=== PATIENT | female | born 1965 | race Hispanic/Latino ===

== ENCOUNTER 2018-04-16 11:55 | Emergency (ER) | payer OTHER ==
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
[2018-04-16 12:37] VITALS: RESP 18
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
[2018-04-16 16:23] VITALS: BP 112/69; PULSE 68; TEMP 98.5; O2SAT 99
== END 2018-04-16 16:23 | disposition home or self-care (01) ==
LOC: H.ER 11:55
DX: M79.1 Myalgia (principal); V43.52XA Car driver injured in collision with other type car in traffic accident, initial encounter; Y92.410 Unspecified street and highway as the place of occurrence of the external cause; Z85.118 Personal history of other malignant neoplasm of bronchus and lung
CPT/HCPCS: 70450; 71046; 72125; 73030; 73060; 73080; 73090; 73522; 99285; J2270